=== PATIENT | female | born 1985 | race Caucasian/White ===

== ENCOUNTER 2021-07-12 01:00 | Inpatient (IN) | payer OTHER, SELFPAY ==
[2021-07-12] VITALS (17 sets, daily range): BP systolic 101–123; BP diastolic 53–66; PULSE 68–95; RESP 16–20; TEMP 36–36.7; O2SAT 95–100; BMI 36.4
--- NOTE | ~2021-07-12 | CT_ITS ---
EXAMINATION: CT ABDOMEN AND PELVIS WITH CONTRAST CLINICAL INFORMATION: Right lower quadrant pain. COMPARISON: None TECHNIQUE: Multidetector volumetric images were obtained from the superior aspect of the liver through the pubic symphysis following administration 85 mL of Omnipaque 350 intravenous contrast. Sagittal and coronal reformatted images were obtained on the technologist's workstation. Oral contrast: No This CT examination was performed using dose optimization techniques as appropriate, variously including the following: *Automated exposure control *Adjustment of mA and/or kV according to patient size (this includes techniques or standardized protocols for targeted exams where dose is matched to indication/reason for exam; i.e. extremities or head) *Use of iterative reconstruction technique DLP: 795 mGy-cm FINDINGS: LUNG BASES: The visualized lung bases are unremarkable. LIVER, GALLBLADDER, AND BILIARY TREE: The liver is normal in size, shape, and attenuation. No focal hepatic lesion or biliary ductal dilatation is present. The gallbladder is unremarkable with no evidence of radiopaque gallstones, gallbladder wall thickening, or obvious pericholecystic inflammatory changes. PANCREAS: Unremarkable. SPLEEN: Unremarkable. ADRENAL GLANDS: Unremarkable. KIDNEYS AND URETERS: The kidneys are normal in size, shape, and attenuation. No hydronephrosis, hydroureter, or calculi seen. No perinephric stranding. BLADDER: Unremarkable. GASTROINTESTINAL TRACT: Focal inflammatory changes with adjacent punctate foci of gas suspicious for adjacent free intraperitoneal gas are noted in the region of the distal ileum anteriorly within the midline pelvis (series 3 image 64). A small quantity of possible free intraperitoneal fluid is present in the same region over a maximum transaxial dimension of approximately 2 cm. No discrete, clearly drainable fluid collections are noted. A vaguely tubular hyperemic focus measuring approximately 1 cm in diameter and 2.5 cm in length (series 8 image 59) is noted in this region appears to extend to an adjacent ileal segment. The appendix is normal in appearance (series 7 image [id number], series 3 image [id number]). Moderate-marked diverticulosis of the sigmoid colon is present without mural inflammatory changes of the sigmoid colon and adjacent sigmoid mesentery. Moderate diverticulosis of the distal descending colon is identified. ABDOMINAL WALL: No significant hernia is appreciated. LYMPH NODES: Normal. VASCULAR: Unremarkable. PELVIC VISCERA: An anteroverted uterus is noted. No adnexal lesions are identified. OSSEOUS STRUCTURES: Unremarkable. CT/CT abdomen pelvis w con IMPRESSION: -Focal inflammatory changes and findings suspicious for a contained perforation in the region of the distal ileum as detailed above. Findings may represent perforated Meckel's diverticulitis. The appendix is normal in appearance. Prominent diverticulosis of the distal descending colon and sigmoid colon is present without associated findings suspicious for acute diverticulitis.
[2021-07-12 02:39] LABS: MANUAL DIFF FLAG NO
[2021-07-12 02:40] LABS: Basophils Percent Auto 0.3 % (0-2); Eosinophils Absolute Auto 0.1 X10*3/uL (0.0-0.4); Eosinophils Percent Auto 0.7 % (0-4); Hematocrit 40.9 % (37.0-47.0); Hemoglobin 13.3 g/dl (12.0-16.0); Imm Gran Abs Auto 0.05 X10*3/uL (0.00-0.03); Imm Gran Pct Auto 0.3 % (0.0-0.4); Lymphocytes Absolute Auto 1.2 X10*3/uL (1.2-4.9); Lymphocytes Percent Auto 7.9 % (20-40); Mean Corpuscular HGB Conc 32.5 g/dl (31.0-35.0); Mean Corpuscular Hemoglobin 30.3 pg (27.0-33.0); Mean Corpuscular Volume 93.2 fL (80.0-98.0); Mean Platelet Volume 9.3 fL (9.4-12.3); Monocytes Percent Auto 6.5 % (2-11); Neutrophils Absolute Auto 12.6 x10*3/uL (2.0-8.3); Neutrophils Percent Auto 84.3 % (45-73); Platelet Count 264 X10*3/uL (160-400); Red Blood Count 4.39 X10*6/uL (4.20-5.50); Red Cell Distribution Width 13.1 % (11.0-16.0)
[2021-07-12 02:41] LABS: Appearance Urine HAZY; Color Urine YELLOW; Glucose Urine UA NEG (NEG); Leukocyte Esterase Urine NEG (NEG); Nitrite Urine NEG (NEG); PH 5.5 (5.0-8.0); Specific Gravity - Urine >= 1.030 (1.005-1.025); Urine Blood NEG (NEG); Urine Ketones NEG (NEG); Urine Protein TRACE MG/DL (NEG-TRACE)
[2021-07-12 02:42] LABS: UACC Culture Trigger NO
[2021-07-12 02:43] LABS: UPreg QC Valid YES; Urine Pregnancy NEGATIVE (NEGATIVE)
[2021-07-12 02:54] LABS: Alanine Aminotransferase 16 U/L (0-31); Albumin Level 4.5 g/dL (3.5-5.0); Alkaline Phosphatase 80 U/L (39-117); Anion Gap 16 (12-20); Aspartate Amino Transferase 14 U/L (5-31); Bilirubin Total 0.5 mg/dL (0.0-1.0); Blood Urea Nitrogen 15 mg/dL (9-16); Calcium 9.4 mg/dL (8.4-10.2); Carbon Dioxide 22 mmol/L (22-29); Chloride 107 mmol/L (96-108); Creatinine Clr Calc Pharmacy 85.2; Estimated Glomerular Filt Rate > 60; Glucose Random 158 mg/dL (60-115); Potassium 4.2 mmol/L (3.3-5.1); Sodium 141 mmol/L (135-145); Total Protein 7.3 g/dL (6.5-8.0)
[2021-07-12 02:55] LABS: COVID-19 Test Negative (Negative); IDNOW Serial# 9DD0AD1C
[2021-07-12] MEDS: fentaNYL citrate/PF 100 MCG/2 ML VIAL 25 MCG IVPUSH (04:55)
[2021-07-12 04:58] LABS: Lipase 17 U/L (8-78)
[2021-07-12] MEDS: iohexoL 350 MG/ML 100 ML INFUS..BTL 85 ML IV (05:05)
[2021-07-12] MEDS: Piperacillin Sodium/Tazobactam 3.375 GM in 0.9 % Sodium Chloride 50 ML IV ×4 (05:09→22:06)
[2021-07-12] MEDS: 0.9 % Sodium Chloride 1,000 ML 999 ML IV (05:10)
[2021-07-12 05:21] LABS: Lactic Acid 1.7 mmol/L (0.5-2.0)
--- NOTE | 2021-07-12 05:24 | ED.ABDPAIN ---
HPI - Abdominal Pain General Chief Complaint: Abdominal Pain Stated Complaint: right side abd pain Time Seen by Provider: 07/12/21 04:32 Source: patient Mode of arrival: ambulatory History of Present Illness HPI narrative: 36-year-old female with reported history of diverticulitis presents to the emergency room with abdominal pain that was sharp in nature and started off in the periumbilical area and then throughout the day yesterday progressively moved into the right lower quadrant with chills and rigors but denies any nausea, vomiting and reports that she has had some loose stools over the past few days. Related Data Allergies Allergy/AdvReac Type Severity Reaction Status Date / Time No Known Allergies Allergy Unverified 07/12/21 04:32 Review of Systems Review of Systems Pertinent positives and negatives as stated in HPI 10 point review of systems is otherwise negative. Physical Exam Vital Signs: Vital Signs: Last Vital Signs Temp 96.8 F 07/12/21 02:03 Pulse 92 07/12/21 02:03 Resp 16 07/12/21 02:03 BP 113/63 07/12/21 02:03 Pulse Ox 98 07/12/21 02:03 Body Mass Index 36.4 VITAL SIGNS: Reviewed. GENERAL: Well developed, well nourished, in no acute distress. HEAD: Normocephalic/atraumatic EYES: PERRLA, EOMI OROPHARYNX: no oral lesions noted, posterior pharynx clear NECK: Supple, no adenopathy LUNGS: Normal breath sounds. No adventitious sounds or accessory muscle use. SpO2<98> CARDIOVASCULAR: Regular rate and rhythm without noted murmurs ABDOMEN: Soft, Significant tenderness in the right lower quadrant, non-distended with hypoactive bowel sounds. SKIN: Inspection of the skin reveals no rashes NEUROLOGIC: Alert and oriented x 4. Strength and sensation to light touch were grossly intact x 4. Course Course Course Narrative: 36-year-old female with history and clinical presentation suggestive of possible acute appendicitis, diverticulitis, UTI. 0500: suspect infection Review of all investigations consistent with contained perforation of suspected Meckel's diverticulum as reported by the radiologist. Patient has received IV antibiotics, pain medication as well as IV fluids. I discussed this case with Surgical Services who accepts admission and will see the patient. MDM - Abdominal Pain Lab Data Result diagrams: 07/12/21 02:34 07/12/21 02:34 Labs: Lab Results 07/12/21 07/12/21 07/12/21 Range/Units 02:34 02:34 02:34 WBC 15.0 H (4.8-10.8) X10*3/uL RBC 4.39 (4.20-5.50) X10*6/uL Hgb 13.3 (12.0-16.0) g/dl Hct 40.9 (37.0-47.0) % MCV 93.2 (80.0-98.0) fL MCH 30.3 (27.0-33.0) pg MCHC 32.5 (31.0-35.0) g/dl RDW 13.1 (11.0-16.0) % Plt Count 264 (160-400) X10*3/uL MPV 9.3 L (9.4-12.3) fL Immature Gran % (Auto) 0.3 (0.0-0.4) % Neut % (Auto) 84.3 H (45-73) % Lymph % (Auto) 7.9 L (20-40) % [place] % (Auto) 6.5 (2-11) % Eos % (Auto) 0.7 (0-4) % Baso % (Auto) 0.3 (0-2) % Lymph # (Auto) 1.2 (1.2-4.9) X10*3/uL [place] # (Auto) 1.0 (0.1-1.2) X10*3/uL Eos # (Auto) 0.1 (0.0-0.4) X10*3/uL Baso # (Auto) 0.0 (0.0-0.2) X10*3/uL Abs Immat Gran (auto) 0.05 H (0.00-0.03) X10*3/uL Absolute Neuts (auto) 12.6 H (2.0-8.3) x10*3/uL Absolute Nucleated RBC 0.000 (0.0-0.012) X10*3/uL Nucleated RBC % (auto) 0.0 (0.0-0.2) /100WBC Sodium 141 (135-145) mmol/L Potassium 4.2 (3.3-5.1) mmol/L Chloride 107 (96-108) mmol/L Carbon Dioxide 22 (22-29) mmol/L Anion Gap 16 (12-20) BUN 15 (9-16) mg/dL Creatinine 0.90 (0.5-1.4) mg/dL Estim Creat Clear Calc 85.2 Estimated GFR > 60 Random Glucose 158 H (60-115) mg/dL Lactic Acid (0.5-2.0) mmol/L Calcium 9.4 (8.4-10.2) mg/dL Total Bilirubin 0.5 (0.0-1.0) mg/dL AST 14 (5-31) U/L ALT 16 (0-31) U/L Alkaline Phosphatase 80 (39-117) U/L Total Protein 7.3 (6.5-8.0) g/dL Albumin 4.5 (3.5-5.0) g/dL Lipase 17 (8-78) U/L Urine Color Urine Appearance Urine pH (5.0-8.0) Ur Specific [place] (1.005-1.025) Urine Protein (NEG-TRACE) MG/DL Urine Glucose (UA) (NEG) MG/DL Urine Ketones (NEG) MG/DL Urine Blood (NEG) Urine Nitrite (NEG) Ur Leukocyte Esterase (NEG) Urine Test (NEGATIVE) COVID-19 (BRENDAN) Negative (Negative) COVID-19 Clin Com See Note 07/12/21 07/12/21 07/12/21 Range/Units 02:34 02:34 05:02 WBC (4.8-10.8) X10*3/uL RBC (4.20-5.50) X10*6/uL Hgb (12.0-16.0) g/dl Hct (37.0-47.0) % MCV (80.0-98.0) fL MCH (27.0-33.0) pg MCHC (31.0-35.0) g/dl RDW (11.0-16.0) % Plt Count (160-400) X10*3/uL MPV (9.4-12.3) fL Immature Gran % (Auto) (0.0-0.4) % Neut % (Auto) (45-73) % Lymph % (Auto) (20-40) % [place] % (Auto) (2-11) % Eos % (Auto) (0-4) % Baso % (Auto) (0-2) % Lymph # (Auto) (1.2-4.9) X10*3/uL [place] # (Auto) (0.1-1.2) X10*3/uL Eos # (Auto) (0.0-0.4) X10*3/uL Baso # (Auto) (0.0-0.2) X10*3/uL Abs Immat Gran (auto) (0.00-0.03) X10*3/uL Absolute Neuts (auto) (2.0-8.3) x10*3/uL Absolute Nucleated RBC (0.0-0.012) X10*3/uL Nucleated RBC % (auto) (0.0-0.2) /100WBC Sodium (135-145) mmol/L Potassium (3.3-5.1) mmol/L Chloride (96-108) mmol/L Carbon Dioxide (22-29) mmol/L Anion Gap (12-20) BUN (9-16) mg/dL Creatinine (0.5-1.4) mg/dL Estim Creat Clear Calc Estimated GFR Random Glucose (60-115) mg/dL Lactic Acid 1.7 (0.5-2.0) mmol/L Calcium (8.4-10.2) mg/dL Total Bilirubin (0.0-1.0) mg/dL AST (5-31) U/L ALT (0-31) U/L Alkaline Phosphatase (39-117) U/L Total Protein (6.5-8.0) g/dL Albumin (3.5-5.0) g/dL Lipase (8-78) U/L Urine Color YELLOW Urine Appearance HAZY Urine pH 5.5 (5.0-8.0) Ur Specific [place] >= 1.030 H (1.005-1.025) Urine Protein TRACE (NEG-TRACE) MG/DL Urine Glucose (UA) NEG (NEG) MG/DL Urine Ketones NEG (NEG) MG/DL Urine Blood NEG (NEG) Urine Nitrite NEG (NEG) Ur Leukocyte Esterase NEG (NEG) Urine Test NEGATIVE (NEGATIVE) COVID-19 (BRENDAN) (Negative) COVID-19 Clin Com Discharge Plan Discharge Clinical Impression: Perforated Meckel's diverticulum Patient Disposition: Admitted As Inpatient [facility]LY [facility] Past Medical History Source: nursing notes reviewed Medical History Diverticulitis Gestational diabetes Social History Social History Advance Directives: No Advance Directives Information Provided: Yes Patient : No
--- NOTE | 2021-07-12 07:33 | PM.HPGS ---
History of Present Illness History of Present Illness Date of Service: 07/12/21 <Shmuel Gaston MD - Last Filed: 07/12/21 14:11> 07/12/21 <Renata Blank MD - Last Filed: 07/12/21 09:33> Chief complaint: Perforated meckel's diverticulitis <Shmuel Gaston MD - Last Filed: 07/12/21 14:11> Narrative: Marin Sims is a 36 year old female who is otherwise healthy, who came to the emergency room last night because of on the lower abdomen. She says she has had some low intensity pain for about a week now. However about o'clock yesterday morning, the seemed to have worsened. She said this was mostly in the epigastric area but migrated to the right lower quadrant and lower abdomen last night. This became severe she came to the emergency room at about 01:00 o'clock in the morning. She denies any nausea or vomiting. She denies any diarrhea. She says she is healthy and does not have any significant medical problems. She is S/P Csection from last March 2021 and is nursing a 3-month old baby at home. <Shmuel Gaston MD - Last Filed: 07/12/21 14:11> Review of Systems Constitutional: Constitutional: Denies chills and Denies fever(s) <Shmuel Gaston MD - Last Filed: 07/12/21 14:11> Cardiovascular: Cardiovascular: Denies chest pain, Denies dyspnea and Denies dyspnea on exertion <Shmuel Gaston MD - Last Filed: 07/12/21 14:11> Respiratory: Respiratory: Denies cough, Denies dyspnea and Denies dyspnea on exertion <Shmuel Gaston MD - Last Filed: 07/12/21 14:11> Gastrointestinal: Gastrointestinal: Denies hematochezia and Denies change in bowel habits <Shmuel Gaston MD - Last Filed: 07/12/21 14:11> Genitourinary: Genitourinary: Denies hematuria <Shmuel Gaston MD - Last Filed: 07/12/21 14:11> Musculoskeletal: Musculoskeletal: Denies back pain and Denies limited range of motion <Shmuel Gaston MD - Last Filed: 07/12/21 14:11> Neurologic: Denies focal weakness and Denies convulsions <Shmuel Gaston MD - Last Filed: 07/12/21 14:11> Psychiatric: Psychiatric: Denies depression and Denies mood swings <Shmuel Gaston MD - Last Filed: 07/12/21 14:11> PMFSH Past Medical History Medical History: Medical History Diverticulitis Gestational diabetes <Shmuel Gaston MD - Last Filed: 07/12/21 14:11> Surgical History Surgical History: Surgical History History of surgical removal of ganglion cyst Hx of section Hx of colonoscopy with polypectomy <Shmuel Gaston MD - Last Filed: 07/12/21 14:11> Social History Social History: Social History Advance Directives: No Advance Directives Information Provided: Yes Patient : No <Shmuel Gaston MD - Last Filed: 07/12/21 14:11> Meds Allergies/Adverse reactions: Allergies Allergy/AdvReac Type Severity Reaction Status Date / Time acetaminophen [From Vicodin] Allergy Intermediate Itching Verified 07/12/21 09:47 hydrocodone [From Vicodin] Allergy Intermediate Itching Verified 07/12/21 09:47 <Shmuel Gaston MD - Last Filed: 07/12/21 14:11> Active Medications: Current Medications Sodium Chloride (Ns) 1,000 mls @ 100 mls/hr IVCONT .Q10H TOMASZ Piperacillin Sod/Tazobactam (Sod 3.375 gm/ Sodium Chloride) 50 mls @ 100 mls/hr IV Q6H TOMASZ Morphine Sulfate (Morphine Sulfate 4 Mg/Ml Cartridge) 3 mg IVPUSH Q3H PRN; Protocol PRN Reason: Pain, Severe (Pain Scale 7-10) Sodium Chloride (0.9 % Sodium Chloride Flush 3 Ml Syringe) 3 ml IVFLUSH QSHIFT TOMASZ <Shmuel Gaston MD - Last Filed: 07/12/21 14:11> Physical Exam Vital Signs: Vital Signs: Last Vital Signs Temp 96.8 F 07/12/21 02:03 Pulse 92 07/12/21 02:03 Resp 16 07/12/21 02:03 BP 113/63 07/12/21 02:03 Pulse Ox 98 07/12/21 02:03 Body Mass Index 36.4 <Shmuel Gaston MD - Last Filed: 07/12/21 14:11> Const: General: comfortable and no acute distress <Shmuel Gaston MD - Last Filed: 07/12/21 14:11> Orientation/consciousness: patient oriented x3 <Shmuel Gaston MD - Last Filed: 07/12/21 14:11> Neck: Neck: Yes no lymphadenopathy <Shmuel Gaston MD - Last Filed: 07/12/21 14:11> Resp: Auscultation: clear to auscultation bilaterally <Shmuel Gaston MD - Last Filed: 07/12/21 14:11> Cardio: Rhythm: regular rhythm <Shmuel Gaston MD - Last Filed: 07/12/21 14:11> GI: Other: Significantly tender on the lower abdomen right more than the left, <Shmuel Gaston MD - Last Filed: 07/12/21 14:11> Palpation (GI): Soft to palpation, nontender and Guarding due to palpation present (GI) <Shmuel Gaston MD - Last Filed: 07/12/21 14:11> Neuro: General: patient oriented x3 <Shmuel Gaston MD - Last Filed: 07/12/21 14:11> Results Results Labs: Short CBC 07/12/21 Range/Units 02:34 WBC 15.0 H (4.8-10.8) X10*3/uL Hgb 13.3 (12.0-16.0) g/dl Hct 40.9 (37.0-47.0) % Plt Count 264 (160-400) X10*3/uL BMP 07/12/21 02:34 Sodium 141 Potassium 4.2 Chloride 107 Carbon Dioxide 22 BUN 15 Creatinine 0.90 Calcium 9.4 Liver Function 07/12/21 Range/Units 02:34 Total Bilirubin 0.5 (0.0-1.0) mg/dL AST 14 (5-31) U/L ALT 16 (0-31) U/L Alkaline Phosphatase 80 (39-117) U/L Albumin 4.5 (3.5-5.0) g/dL Urine 07/12/21 07/12/21 Range/Units 02:34 02:34 Urine Color YELLOW Urine Appearance HAZY Urine pH 5.5 (5.0-8.0) Ur Specific [place] >= 1.030 H (1.005-1.025) Urine Protein TRACE (NEG-TRACE) MG/DL Urine Glucose (UA) NEG (NEG) MG/DL Urine Test NEGATIVE (NEGATIVE) <Shmuel Gaston MD - Last Filed: 07/12/21 14:11> Abdomen CT scan report/results: report reviewed and image reviewed <Shmuel Gaston MD - Last Filed: 07/12/21 14:11> CT scan - pelvis: report reviewed and image reviewed <Shmuel Gaston MD - Last Filed: 07/12/21 14:11> Assessment and Plan (1) Perforated Meckel's diverticulum: Status: Acute <Shmuel Gaston MD - Last Filed: 07/12/21 14:11> Review of her CT scan shows what appears to be perforated Meckel'sdiverticulum, amounts of free air surrounding this. She has very tender to touch. I therefore told her that it would be best to proceed with laparotomy and resection of this segment of the small bowel. I reviewed with her the technique of this procedure. I explained the risks including but not limited to bleeding, infections, staple line leak, bowel injury, abscess formation, inherent risks of anesthesia, postop pain, wound complications, as well as the benefits and alternatives. She understands and agrees to proceed. <Shmuel Gaston MD - Last Filed: 07/12/21 14:11> Quality Stroke Does the patient have a stroke diagnosis?: No <Shmuel Gaston MD - Last Filed: 07/12/21 14:11> VTE Prior VTE?: No <Shmuel Gaston MD - Last Filed: 07/12/21 14:11> VTE Risk Level:: Surgical - low <Shmuel Gaston MD - Last Filed: 07/12/21 14:11> VTE Device Contraindication: N/A - Device Ordered <Shmuel Gaston MD - Last Filed: 07/12/21 14:11> VTE Drug Contraindication: N/A - Med Ordered <Shmuel Gaston MD - Last Filed: 07/12/21 14:11> Procedures Date of Service Date of Service: 07/12/21 <Shmuel Gaston MD - Last Filed: 07/12/21 14:11>
[2021-07-12] MEDS: fentaNYL citrate/PF 100 MCG/2 ML VIAL 50 MCG IVPUSH (09:15)
--- NOTE | 2021-07-12 09:19 | PC.NURSE ---
medicated for abd pain. this rn arrival at 7am. no vomiting since then. Short stay staff here for transport. pt needs to be undressed fully. skin pwd. last PO intake was 1900 on 07/11
--- NOTE | 2021-07-12 09:57 | PC.NURSE ---
0930 to [facility] stay
--- NOTE | 2021-07-12 11:38 | MHC.CM.PN ---
CM ATTEMPTED TO MEET W/PT HOWEVER PT HAS LEFT ED FOR SURGERY (LAP COLON RESECTION). CM TO REVISIT.
--- NOTE | 2021-07-12 12:05 | PM.OP ---
Brief Operative Note Date of Service: 07/12/21 <Gayatri Hogue PA-C - Last Filed: 07/12/21 12:06> Pre-op diagnosis: perforated meckel's diverticulum <Gayatri Hogue PA-C - Last Filed: 07/12/21 12:06> Post-op diagnosis: same <Gayatri Hogue PA-C - Last Filed: 07/12/21 12:06> Procedure: exploratory laparotomy, small bowel resection <Gayatri Hogue PA-C - Last Filed: 07/12/21 12:06> Surgeon: PAM DENIS MD <Gayatri Hogue PA-C - Last Filed: 07/12/21 12:06> Anesthesia: GETA <Gayatri Hogue PA-C - Last Filed: 07/12/21 12:06> Was an Director Specialty used for this Procedure?: Yes <Gayatri Hogue PA-C - Last Filed: 07/12/21 12:06> No <Pam Denis MD - Last Filed: 07/12/21 14:10> Director Specialty: Gayatri Hogue <Gayatri Hogue PA-C - Last Filed: 07/12/21 12:06> Estimated blood loss (mL): 20 <Gayatri Hogue PA-C - Last Filed: 07/12/21 12:06> Pathology: other (MECKEL'S DIVERTICULUM) <Gayatri Hogue PA-C - Last Filed: 07/12/21 12:06> Condition: stable <Gayatri Hogue PA-C - Last Filed: 07/12/21 12:06> Disposition: PACU <Gayatri Hogue PA-C - Last Filed: 07/12/21 12:06>
--- NOTE | 2021-07-12 12:09 | HO.ANESPROP2 ---
[facility] Active Problems Active Problems: All Active Problems (Updated 07/12/21 @ 06:23 by Renata Harris MD) Perforated Meckel's diverticulum (Acute) Past Medical History Medical History Diverticulitis Gestational diabetes Surgical History Surgical History History of surgical removal of ganglion cyst Hx of section Hx of colonoscopy with polypectomy History of Problems with Anesthesia: No Social History Social History Advance Directives: No Advance Directives Information Provided: Yes Patient : No Meds Allergies Allergy/AdvReac Type Severity Reaction Status Date / Time acetaminophen [From Vicodin] Allergy Intermediate Itching Verified 07/12/21 09:47 hydrocodone [From Vicodin] Allergy Intermediate Itching Verified 07/12/21 09:47 Active Medications: Current Medications Sodium Chloride (Ns) 1,000 mls @ 100 mls/hr IVCONT .Q10H TOMASZ Piperacillin Sod/Tazobactam (Sod 3.375 gm/ Sodium Chloride) 50 mls @ 100 mls/hr IV Q6H OTMASZ Morphine Sulfate (Morphine Sulfate 4 Mg/Ml Cartridge) 3 mg IVPUSH Q3H PRN; Protocol PRN Reason: Pain, Severe (Pain Scale 7-10) Sodium Chloride (0.9 % Sodium Chloride Flush 3 Ml Syringe) 3 ml IVFLUSH QSHIFT TOMASZ Exam Exam Date and Time: July 12, 2021 1209 Height,Weight and Vital Signs: Height 5 ft 1 in Weight 87.543 kg Last Vital Signs Temp 97.9 F 07/12/21 09:49 Pulse 95 07/12/21 09:49 Resp 20 07/12/21 09:49 BP 114/57 L 07/12/21 09:49 Pulse Ox 99 07/12/21 09:49 Pertinent Lab Results Pertinent Lab Results: Laboratory Tests 07/12/21 07/12/21 07/12/21 02:34 02:34 02:34 WBC 15.0 H RBC 4.39 Hgb 13.3 Hct 40.9 MCV 93.2 MCH 30.3 MCHC 32.5 RDW 13.1 Plt Count 264 MPV 9.3 L Immature Gran % (Auto) 0.3 Neut % (Auto) 84.3 H Lymph % (Auto) 7.9 L [place] % (Auto) 6.5 Eos % (Auto) 0.7 Baso % (Auto) 0.3 Lymph # (Auto) 1.2 [place] # (Auto) 1.0 Eos # (Auto) 0.1 Baso # (Auto) 0.0 Abs Immat Gran (auto) 0.05 H Absolute Neuts (auto) 12.6 H Absolute Nucleated RBC 0.000 Nucleated RBC % (auto) 0.0 Sodium 141 Potassium 4.2 Chloride 107 Carbon Dioxide 22 Anion Gap 16 BUN 15 Creatinine 0.90 Estim Creat Clear Calc 85.2 Estimated GFR > 60 Random Glucose 158 H Lactic Acid Calcium 9.4 Total Bilirubin 0.5 AST 14 ALT 16 Alkaline Phosphatase 80 Total Protein 7.3 Albumin 4.5 Lipase 17 Urine Color Urine Appearance Urine pH Ur Specific [place] Urine Protein Urine Glucose (UA) Urine Ketones Urine Blood Urine Nitrite Ur Leukocyte Esterase Urine Test COVID-19 (BRENDAN) Negative COVID-[employer] See Note 07/12/21 07/12/21 07/12/21 02:34 02:34 05:02 WBC RBC Hgb Hct MCV MCH MCHC RDW Plt Count MPV Immature Gran % (Auto) Neut % (Auto) Lymph % (Auto) [place] % (Auto) Eos % (Auto) Baso % (Auto) Lymph # (Auto) [place] # (Auto) Eos # (Auto) Baso # (Auto) Abs Immat Gran (auto) Absolute Neuts (auto) Absolute Nucleated RBC Nucleated RBC % (auto) Sodium Potassium Chloride Carbon Dioxide Anion Gap BUN Creatinine Estim Creat Clear Calc Estimated GFR Random Glucose Lactic Acid 1.7 Calcium Total Bilirubin AST ALT Alkaline Phosphatase Total Protein Albumin Lipase Urine Color YELLOW Urine Appearance HAZY Urine pH 5.5 Ur Specific [place] >= 1.030 H Urine Protein TRACE Urine Glucose (UA) NEG Urine Ketones NEG Urine Blood NEG Urine Nitrite NEG Ur Leukocyte Esterase NEG Urine Test NEGATIVE COVID-19 (BRENDAN) COVID-19 Jaxtr Airway Mallampati Class: I TM Dist: >3cm Neck ROM: Full Loose/Missing/Broken Teeth: No Heart: RRR Lungs: CTA Assessment and Plan Assessment Anesthesia Assessment: Anesthesia Plan Discussed and Chart Reviewed Final Anesthetic Review History of Problems with Anesthesia: No NPO: Yes ASA Class: I and Emergency Final Preanesthetic Review: Meds/Allgs Chart Reviewed, Consent Obtained/Reviewed and Anes Risks/Benef Reviewed Patient Risk: Low Procedure Risk: Intermediate Anesthetic Plan Anesthetic Plan: GA Disposition: Standard PACU
--- NOTE | 2021-07-12 12:09 | W.PM.OPN ---
Operative Note Operative Note Date of Service: 07/12/21 Narrative: Preop diagnosis: Perforated Meckel's diverticulitis Postop diagnosis: The same Procedure: Laparotomy, small-bowel resection, including segment with Meckel's diverticulitis Surgeon: Shmuel Gaston MD speech and language assistant: JENNY Hogue The patient is a 36 year female admitted early this morning because of abdominal pain. She had a CAT scan showing perforated Meckel's diverticulitis. I had reviewed her imaging studies with the radiologist. I for explained to the patient that it would be best to proceed with laparotomy and likely resection of the involved small bowel for the perforated diverticulitis. She understood the technique of the procedure as well as the risks, benefits, and alternatives and had agreed to proceed . She was brought to the operating room and placed supine on the table under general anesthesia via endotracheal tube. A Mauricio catheter was inserted. The abdomen is prepped and draped in the usual sterile fashion. A surgical time-out was done. The patient received cefazolin 2 g IV preoperatively I made a short midline laparotomy in the incision using blade 10 starting from just the area below the umbilicus caudally. This was carried down using electrocautery through the full-thickness of the skin and subcutaneous fat. Please note that the patient had a thick amount of subcutaneous fat. We eventually reach the fascia. I continued to clear the fascia made the incision using the electrocautery until was able to identify peritoneal lining. I then entered the peritoneum and extended the fascial incision superiorly and inferiorly to optimize the length of the skin incision. There was note of some small amount of murky peritoneal fluid. There was note of omentum tethered to small bowel loops near the midline and a little to the right. Some of these omentum was also adherent to the abdominal wall so had to carefully release this using careful blunt dissection with the finger. Eventually, I was able to expose the peritoneum well. I was able to reflect the omentum superiorly but this was tethered to some small bowel loops with a lot of indurated tissue. I was eventually able to expose small bowel loops on the midline and again there was this segment with a lot of induration and fibrinous exudates. I was immediately able to see Meckel's diverticulum which was about 7 cm long, markedly indurated with what appeared to be necrosis and perforation at the tip. The entire critical limb appeared to be very indurated and inflamed. Again there was a lot of fibrinous exudates surrounding this. the adjacent omentum and small bowel loops had reactive erythema as well. I was able to isolate this segment of small bowel with the Meckel's diverticulum. I chose my point of transection about 5 cm from this both proximal and distal. I transected both ends with VARINDER 60 mm staplers. I then completed the resection by dividing the attached mesentery using the LigaSure. This was sent as a specimen . I then proceeded to align the small bowel loops together. I opened up the apex of each staple line. I entered the lumen of each limb and positioned each arm of the VARINDER 60 mm stapler at the anti mesenteric border. I made sure that there was no bowel loop or mesentery trapped between the staplers and this was then fired. I examined the lumen of the anastomosis and the staple line appeared intact without any bleeding. I then closed the enterotomy with a TA 60 mm stapler to complete the anastomosis. I reinforced the crotch of the staple line with seromuscular Dexon 3-0 stitch to distension from the staple line itself. I closed the mesenteric defect with the running Dexon 3-0 stitch to prevent any internal hernia. I examined the entire staple line and this appeared to be intact. There is no obvious bleeding . I replaced the bowel loops back into the peritoneal cavity. I positioned the omentum to overlie this anastomosis. I irrigated the area. I then closed the fascia with running Maxon 1 stitch. I re-irrigated the thick subcutaneous layer. I closed the skin with skin chela. I infiltrated the area around the incision with Marcaine 0.5% for postop analgesia . Dressings were applied and the procedure was completed . The patient tolerated procedure well. There were no complication noted. Initial and final counts of sponges and instruments were correct. Estimated blood loss was about 20 cc . The patient was extubated without difficulty and transferred to the recovery room with stable vital signs.
[2021-07-12] MEDS: HYDROmorphone HCl 0.5 MG/0.5 ML SYRINGE IVPUSH ×2 (12:27→13:15)
[2021-07-12] MEDS: ondansetron HCL 4 MG/2 ML VIAL IVPUSH (12:35)
--- NOTE | 2021-07-12 14:11 | PM.EVENT ---
Event Note Date of Service: 07/12/21 Event Note: seen postop underwent small bowel resection for perforated Meckel' diverticulitis earlier says she has good pain control appears comfortable good UO pain mgt on clear liquids Jarocho updated by phone
[2021-07-12] MEDS: 0.9 % Sodium Chloride 1,000 ML 100 ML IVCONT (14:25)
[2021-07-13] MEDS: 0.9 % Sodium Chloride 1,000 ML 100 ML IVCONT ×2 (01:46→12:29)
[2021-07-13 04:00] VITALS: BP 126/58; PULSE 69; RESP 16; TEMP 37.2; O2SAT 96
[2021-07-13] MEDS: Piperacillin Sodium/Tazobactam 3.375 GM in 0.9 % Sodium Chloride 50 ML IV ×4 (04:51→22:50)
[2021-07-13] MEDS: oxyCODONE HCl Immed Release 5 MG TABLET PO ×2 (04:55→16:33)
[2021-07-13 05:30] LABS: MANUAL DIFF FLAG NO
[2021-07-13 05:56] LABS: Anion Gap 12 (12-20); Blood Urea Nitrogen 7 mg/dL (9-16); Calcium 8.6 mg/dL (8.4-10.2); Carbon Dioxide 23 mmol/L (22-29); Chloride 110 mmol/L (96-108); Creatinine Clr Calc Pharmacy 105.1; Estimated Glomerular Filt Rate > 60; Glucose Fasting 105 mg/dL (60-99); Sodium 141 mmol/L (135-145)
[2021-07-13 06:04] LABS: Basophils Percent Auto 0.3 % (0-2); Eosinophils Percent Auto 0.2 % (0-4); Hematocrit 35.9 % (37.0-47.0); Hemoglobin 11.5 g/dl (12.0-16.0); Imm Gran Abs Auto 0.05 X10*3/uL (0.00-0.03); Imm Gran Pct Auto 0.4 % (0.0-0.4); Lymphocytes Absolute Auto 1.5 X10*3/uL (1.2-4.9); Lymphocytes Percent Auto 11.4 % (20-40); Mean Corpuscular Hemoglobin 30.1 pg (27.0-33.0); Mean Platelet Volume 9.8 fL (9.4-12.3); Monocytes Absolute Auto 0.9 X10*3/uL (0.1-1.2); Monocytes Percent Auto 7.3 % (2-11); Neutrophils Absolute Auto 10.2 x10*3/uL (2.0-8.3); Neutrophils Percent Auto 80.4 % (45-73); Platelet Count 283 X10*3/uL (160-400); Red Blood Count 3.82 X10*6/uL (4.20-5.50); Red Cell Distribution Width 13.5 % (11.0-16.0); White Blood Count 12.7 X10*3/uL (4.8-10.8)
--- NOTE | 2021-07-13 07:00 | HO.POSTANES ---
Post Anesthesia Evaluation Post Anesthesia Evaluation Vital Signs: Vital Signs Temp Pulse Resp BP Pulse Ox 07/13/21 04:00 98.9 F 69 16 126/58 L 96 07/12/21 23:57 97.6 F 75 17 115/55 L 95 07/12/21 19:54 97.7 F 75 17 118/57 L 98 Anesthesia: General Endotracheal-GETA Mental Status: Awake Pain Control: Satisfactory Nausea/Vomiting: None Hydration: Adequate Anesthesia-Related Issues: No Anes. Related Issues
[2021-07-13 07:51] VITALS: BP 109/54; PULSE 67; RESP 17; TEMP 36.4; O2SAT 96
--- NOTE | 2021-07-13 08:56 | P.CDIC_ITS ---
CDI Concurrent Query Documentation Clarification: PHYSICIAN'S DOCUMENTATION REQUEST Date of Query: 07/13/21 0857 Patient Name: Marin Sims Admit Date: 07/12/21 Dear Doctor, A review of the medical record indicates additional documentation may be needed. Please review below and update the documentation accordingly. Risk Factors/Clinical Indicators/Treatments Per Operative Report 07/12/21: there was this segment with a lot of induration and fibrinous exudates.? I was immediately able to see Meckel's diverticulum? which was about? 7 cm long, markedly indurated with appeared to be necrosis and perforation at the tip.? The entire critical limb appeared to be very indurated and inflamed.? Again there was a lot of fibrinous exudate surrounding this. ? the adjacent omentum and small bowel loops had reactive erythema as well. Based on the above, could you clarify in the Progress Notes the appropriate rylee gnosis, if significant, that supports the above abnormalities and additional evaluation, monitoring, and/or treatment rendered: * Perforated Bishop's Diverticulum with Peritonitis * Perforated Gio's Diverticulum without Peritonitis * Other (please specify) * Unable to determine Use of terms such as suspected, likely, concern for, or probable (associated with a specific diagnosis that is being evaluated, monitored, or treated as if it exists) are acceptable and can be coded in the inpatient setting, when documented at the time of discharge. Thank you, Maura Westbrook RN Extension: [phone] Please use your independent medical judgment in providing your response. THIS QUERY IS PART OF THE PERMANENT MEDICAL RECORD Provider Response: Other (perforated Meckel's diverticulitis with peritonitis) Other Diagnosis: patient has perforated Meckel's diverticulitis with peritonitis
--- NOTE | 2021-07-13 09:10 | MHC.CM.PN ---
pt lives c her in their home. she reports that at baseline she is independent in her care. she is active in the community . her can help her c her needs if necessary. of note, he is a panel beater at [employer]. he will also provide transportation at or. pt denies the need for vna at or. dc plan is home no svcs. cm to cont. to follow.
--- NOTE | 2021-07-13 10:30 | P.CDIC_ITS ---
CDI Concurrent Query Documentation Clarification: PHYSICIAN'S DOCUMENTATION REQUEST Date of Query: 07/13/21 1030 Patient Name: Marin Sims Admit Date: 07/12/21 Dear Doctor, A review of the medical record indicates additional documentation may be needed. Please review below and update the documentation accordingly. Clinical Indicators: The following diagnoses or signs and symptoms were noted in the patient record: Lab Tests: Imaging: Progress Notes: Nurse's Notes: Ancillary Notes: Other Documentation: Risk Factors/Clinical Indicators/Treatments Based on the above, could you clarify in the Progress Notes the appropriate diagnosis, if significant, that supports the above abnormalities and additional evaluation, monitoring, and/or treatment rendered: * Condition 1 (please specify) * Condition 2 (please specify) * Condition 3 (please specify) * Labs indicate a diagnosis of (please specify) * Other (please specify) * Unable to determine Use of terms such as suspected, likely, concern for, or probable (associated with a specific diagnosis that is being evaluated, monitored, or treated as if it exists) are acceptable and can be coded in the inpatient setting, when documented at the time of discharge. Thank you, Maura Westbrook [insert CDI's credentials] Extension: [4-digit phone extension] Please use your independent medical judgment in providing your response. THIS QUERY IS PART OF THE PERMANENT MEDICAL RECORD
--- NOTE | 2021-07-13 11:05 | P.PNGS_ITS ---
Subjective Subjective Date of Service: 07/13/21 <Gayatri Hogue PA-C - Last Filed: 07/13/21 11:09> 07/13/21 <Shmuel Gaston MD - Last Filed: 07/13/21 12:08> Interval history: Having some incisional pain but overall feeling better and comfortable. Tolerating clears. Has some gaseous pain and cramping. OOB to bathroom and voiding on own. Denies flatus. <Gayatri Hogue PA-C - Last Filed: 07/13/21 11:09> Physical Exam Vital Signs: Vital Signs: Last Vital Signs Temp 97.5 F 07/13/21 07:51 Pulse 67 07/13/21 07:51 Resp 17 07/13/21 07:51 BP 109/54 L 07/13/21 07:51 Pulse Ox 96 07/13/21 07:51 BMI result Body Mass Index 36.4 <Gayatri Hogue PA-C - Last Filed: 07/13/21 11:09> Const: General: comfortable and no acute distress <NILAY Huber - Last Filed: 07/13/21 11:09> Orientation/consciousness: patient oriented x3 <ROSANNA Huber Last Filed: 07/13/21 11:09> Resp: Effort & Inspection: normal respiratory effort <Gayatri Hogue PA-C - Last Filed: 07/13/21 11:09> GI: Inspection: No distended and Yes incision (dressing c/d/i) <Gayatri Hogue PA-C - Last Filed: 07/13/21 11:09> Palpation (GI): Soft to palpation, Tenderness to palpation present (GI) (mild, incisional), no guarding and not rigid <Gayatri Hogue PA-C - Last Filed: 07/13/21 11:09> Percussion: Yes normal to percussion <ROSANNA Huber Last Filed: 07/13/21 11:09> Skin: General skin exam: no rashes or lesions noted <Gayatri Hogue PA-C - Last Filed: 07/13/21 11:09> Neuro: General: patient oriented x3 <Gayatri Hogue PA-C - Last Filed: 07/13/21 11:09> Extrem: General: Yes no clubbing, cyanosis or edema <Gayatri Hogue PA-C - Last Filed: 07/13/21 11:09> Objective Data Active Medications Sodium Chloride (Ns) 1,000 mls @ 100 mls/hr IVCONT .Q10H [facility] Last Infusion: 07/13/21 05:23 Dose: 100 mls/hr Documented by: FRANKY Piperacillin Sod/Tazobactam (Sod 3.375 gm/ Sodium Chloride) 50 mls @ 100 mls/hr IV Q6H [facility] Last Admin: 07/13/21 10:29 Dose: 100 mls/hr Documented by: PRAVIN Acetaminophen (Ofirmev) 1,000 mg in 100 mls @ 400 mls/hr IV Q6H [facility] Last Infusion: 07/13/21 10:13 Dose: 0 mls/hr Documented by: PRAVIN Morphine Sulfate (Morphine Sulfate 4 Mg/Ml Cartridge) 3 mg IVPUSH Q3H PRN; Protocol PRN Reason: Pain, Severe (Pain Scale 7-10) Ondansetron HCl (Ondansetron Hcl 4 Mg/2 Ml Vial) 4 mg IVPUSH Q8H PRN PRN Reason: Nausea Oxycodone HCl (Oxycodone Hcl Immed Release 5 Mg Tablet) 10 mg PO Q4H PRN PRN Reason: Pain, Moderate (Pain Scale 4-6 Oxycodone HCl (Oxycodone Hcl Immed Release 5 Mg Tablet) 5 mg PO Q4H PRN PRN Reason: Pain, Moderate (Pain Scale 4-6 Last Admin: 07/13/21 04:55 Dose: 5 mg Documented by: FRANKY Sodium Chloride (0.9 % Sodium Chloride Flush 3 Ml Syringe) [facility] Last Admin: 07/13/21 07:23 Dose: Not Given Documented by: PRAVIN Non-Admin Reason: IV Running <Gayatri Hogue PA-C - Last Filed: 07/13/21 11:09> Labs CBC & Chem 7: : 07/13/21 05:22 07/13/21 05:22 <Gayatri Hogue PA-C - Last Filed: 07/13/21 11:09> Labs: Laboratory Results - last 24 hr 07/13/21 07/13/21 05:22 05:22 MCV 94.0 MCH 30.1 MCHC 32.0 RDW 13.5 Plt Count 283 MPV 9.8 Immature Gran % (Auto) 0.4 Neut % (Auto) 80.4 H Lymph % (Auto) 11.4 L Reynolds % (Auto) 7.3 Eos % (Auto) 0.2 Baso % (Auto) 0.3 Lymph # (Auto) 1.5 Reynolds # (Auto) 0.9 Eos # (Auto) 0.0 Baso # (Auto) 0.0 Abs Immat Gran (auto) 0.05 H Absolute Neuts (auto) 10.2 H Absolute Nucleated RBC 0.000 Nucleated RBC % (auto) 0.0 Anion Gap 12 Estim Creat Clear Calc 105.1 Estimated GFR > 60 Fasting Glucose 105 H Calcium 8.6 D <Gayatri Hogue PA-C - Last Filed: 07/13/21 11:09> Microbiology Microbiology Results: Microbiology 07/12/21 05:26 Blood Culture - Preliminary Blood - Venous No growth after 24 hours. 07/12/21 05:02 Blood Culture - Preliminary Blood - Venous No growth after 24 hours. <Gayatri Hogue PA-C - Last Filed: 07/13/21 11:09> Procedures Date of Service Date of Service: 07/13/21 <Gayatri Hogue PA-C - Last Filed: 07/13/21 11:09> Progress Note: A&P Assessment and plan (1) Perforated Meckel's diverticulum: Status: Acute <Gayatri Hogue PA-C - Last Filed: 07/13/21 11:09> Assessment and Plan: Says she has good pain control Says she only took oxycodone morning Denies flatus No nausea or vomiting Dressings dry She looks well Continue pain management Out of bed and ambulate DC Mauricio Seen and examined - agree with JENNY Hogue <Shmuel Gaston MD - Last Filed: 07/13/21 12:08> (2) S/P exploratory laparotomy: Status: Acute <Gayatri Hogue PA-C - Last Filed: 07/13/21 11:09> Assessment and Plan: 36 year old female admitted with perforated meckels diverticulum now POD #1 s/p ex lap, small bowel resection. She is doing well post op and comfortable. VSS. Abd exam benign with appropriate post op tenderness, clean dressing. Will continue clear liquid diet for now until begins to pass flatus given some cramping and bloating complaints. Encouraged OOB/ambulation, IS use. patient comfortable with plan. Cont IV abx. WBC downtrending. <Gayatri moran PA-C - Last Filed: 07/13/21 11:09> Fall Risk Details Current Medications: Current Medications Sodium Chloride (Ns) 1,000 mls @ 100 mls/hr IVCONT .Q10H [facility] Last Infusion: 07/13/21 05:23 Dose: 100 mls/hr Documented by: Piperacillin Sod/Tazobactam (Sod 3.375 gm/ Sodium Chloride) 50 mls @ 100 mls/hr IV Q6H [facility] Last Admin: 07/13/21 10:29 Dose: 100 mls/hr Documented by: Acetaminophen (Ofirmev) 1,000 mg in 100 mls @ 400 mls/hr IV Q6H [facility] Last Infusion: 07/13/21 10:13 Dose: Infused Documented by: Morphine Sulfate (Morphine Sulfate 4 Mg/Ml Cartridge) 3 mg IVPUSH Q3H PRN; Protocol PRN Reason: Pain, Severe (Pain Scale 7-10) Ondansetron HCl (Ondansetron Hcl 4 Mg/2 Ml Vial) 4 mg IVPUSH Q8H PRN PRN Reason: Nausea Oxycodone HCl (Oxycodone Hcl Immed Release 5 Mg Tablet) 10 mg PO Q4H PRN PRN Reason: Pain, Moderate (Pain Scale 4-6 Oxycodone HCl (Oxycodone Hcl Immed Release 5 Mg Tablet) 5 mg PO Q4H PRN PRN Reason: Pain, Moderate (Pain Scale 4-6 Last Admin: 07/13/21 04:55 Dose: 5 mg Documented by: Sodium Chloride (0.9 % Sodium Chloride Flush 3 Ml Syringe) 3 ml IVFLUSH QSHIFT [facility] Last Admin: 07/13/21 07:23 Dose: Not Given Documented by: <Gayatri Hogue PA-C - Last Filed: 07/13/21 11:09> Time Spent With Patient Time: Total time spent is greater than 50% in coordination of care (as documented) at patient's floor/unit and/or counseling patient: <Gayatri Hogue PA-C - Last Filed: 07/13/21 11:09> Time with patient: 15 - 24 minutes <Gayatri Hogue PA-C - Last Filed: 07/13/21 11:09> Quality Stroke Does the patient have a stroke diagnosis?: No <Gayatri Hogue PA-C - Last Filed: 07/13/21 11:09> VTE Prior VTE?: No <Gayatri Hogue PA-C - Last Filed: 07/13/21 11:09> VTE Risk Level:: Surgical - low <Gayatri Hogue PA-C - Last Filed: 07/13/21 11:09> VTE Device Contraindication: N/A - Device Ordered <Gayatri Hogue PA-C - Last Filed: 07/13/21 11:09> VTE Drug Contraindication: N/A - Med Ordered <Gayatri Hogue PA-C - Last Filed: 07/13/21 11:09>
[2021-07-13 11:22] VITALS: BP 104/53; PULSE 71; RESP 18; TEMP 36.2; O2SAT 96
[2021-07-13 15:55] VITALS: BP 128/66; PULSE 77; RESP 18; TEMP 36.4; O2SAT 96
[2021-07-13 19:18] VITALS: BP 117/58; PULSE 78; RESP 18; TEMP 37.1; O2SAT 97
[2021-07-13 23:01] VITALS: BP 115/57; PULSE 58; RESP 18; TEMP 36.7; O2SAT 97
[2021-07-14] MEDS: 0.9 % Sodium Chloride 1,000 ML 100 ML IVCONT (02:07)
[2021-07-14 04:00] VITALS: BP 121/69; PULSE 76; RESP 18; TEMP 36.7; O2SAT 97
[2021-07-14] MEDS: Piperacillin Sodium/Tazobactam 3.375 GM in 0.9 % Sodium Chloride 50 ML IV ×2 (04:48→10:57)
[2021-07-14] MEDS: ondansetron HCL 4 MG/2 ML VIAL IVPUSH (04:48)
[2021-07-14 07:50] VITALS: BP 113/55; PULSE 68; RESP 18; TEMP 36.7; O2SAT 98
--- NOTE | 2021-07-14 08:11 | PM.PNGS ---
Subjective Subjective Date of Service: 07/14/21 <Gayatri Hogue PA-C - Last Filed: 07/14/21 08:14> 07/14/21 <Shmuel Gaston MD - Last Filed: 07/14/21 08:59> Interval history: Feels well. Passing flatus and moving bowels. Tolerating clear liquids. Has been OOB and ambulating. <Gayatri Hogue PA-C - Last Filed: 07/14/21 08:14> Physical Exam Vital Signs: Vital Signs: Last Vital Signs Temp 98.1 F 07/14/21 07:50 Pulse 68 07/14/21 07:50 Resp 18 07/14/21 07:50 BP 113/55 L 07/14/21 07:50 Pulse Ox 98 07/14/21 07:50 BMI result Body Mass Index 36.4 <Gayatri Hogue PA-C - Last Filed: 07/14/21 08:14> Const: General: comfortable, no acute distress and alert <Gayatri Hogue PA-C - Last Filed: 07/14/21 08:14> Orientation/consciousness: patient oriented x3 <Gayatri Hogue PA-C - Last Filed: 07/14/21 08:14> Resp: Effort & Inspection: normal respiratory effort <Gayatri Hogue PA-C - Last Filed: 07/14/21 08:14> GI: Inspection: No distended and Yes incision (clean) <Gayatri Hogue PA-C - Last Filed: 07/14/21 08:14> Palpation (GI): Soft to palpation, Tenderness to palpation present (GI) (very mild incisional), no guarding and not rigid <Gayatri Hogue PA-C - Last Filed: 07/14/21 08:14> Percussion: Yes normal to percussion <Gayatri Hogue PA-C - Last Filed: 07/14/21 08:14> Skin: General skin exam: no rashes or lesions noted <ROSANNA Huber Last Filed: 07/14/21 08:14> Neuro: General: patient oriented x3 <ROSANNA Huber Last Filed: 07/14/21 08:14> Extrem: General: Yes no clubbing, cyanosis or edema <Gayatri Hogue PA-C - Last Filed: 07/14/21 08:14> Objective Data Active Medications Piperacillin Sod/Tazobactam (Sod 3.375 gm/ Sodium Chloride) 50 mls @ 100 mls/hr IV Q6H [facility] Last Infusion: 07/14/21 05:43 Dose: 0 mls/hr Documented by: ROSEMARY Acetaminophen (Ofirmev) 1,000 mg in 100 mls @ 400 mls/hr IV Q6H [facility] Last Infusion: 07/14/21 06:26 Dose: 0 mls/hr Documented by: ROSEMARY Morphine Sulfate (Morphine Sulfate 4 Mg/Ml Cartridge) 3 mg IVPUSH Q3H PRN; Protocol PRN Reason: Pain, Severe (Pain Scale 7-10) Ondansetron HCl (Ondansetron Hcl 4 Mg/2 Ml Vial) 4 mg IVPUSH Q8H PRN PRN Reason: Nausea Last Admin: 07/14/21 04:48 Dose: 4 mg Documented by: ROSEMARY Oxycodone HCl (Oxycodone Hcl Immed Release 5 Mg Tablet) 10 mg PO Q4H PRN PRN Reason: Pain, Moderate (Pain Scale 4-6 Oxycodone HCl (Oxycodone Hcl Immed Release 5 Mg Tablet) 5 mg PO Q4H PRN PRN Reason: Pain, Moderate (Pain Scale 4-6 Last Admin: 07/13/21 16:33 Dose: 5 mg Documented by: PRAVIN Sodium Chloride (0.9 % Sodium Chloride Flush 3 Ml Syringe) [facility] Last Admin: 07/14/21 07:14 Dose: Not Given Documented by: SWAPNA Non-Admin Reason: IV Running <ROSANNA Huber Last Filed: 07/14/21 08:14> Labs CBC & Chem 7: : 07/13/21 05:22 07/13/21 05:22 <ROSANNA Huber Last Filed: 07/14/21 08:14> Microbiology Microbiology Results: Microbiology 07/12/21 05:26 Blood Culture - Preliminary Blood - Venous No growth after 48 hours. 07/12/21 05:02 Blood Culture - Preliminary Blood - Venous No growth after 48 hours. <Gayatri Hogue PA-C - Last Filed: 07/14/21 08:14> Procedures Date of Service Date of Service: 07/14/21 <Gayatri Hogue PA-C - Last Filed: 07/14/21 08:14> Progress Note: A&P Assessment and plan (1) Perforated Meckel's diverticulum: Status: Acute <Gayatri Hogue PA-C - Last Filed: 07/14/21 08:14> Assessment and Plan: Feels well Passing flatus Had BM Tolerating liquids Abdomen soft Incision clean and dry Advance diet Ambulate Pain management Seen and examined - agree with JENNY Hogue <Shmuel Gaston MD - Last Filed: 07/14/21 08:59> (2) S/P exploratory laparotomy: Status: Acute <Gayatri Hogue PA-C - Last Filed: 07/14/21 08:14> Assessment and Plan: ?? 36 year old female admitted with perforated meckels diverticulum now POD #2 s/p ex lap, small bowel resection. She continues to do well post op and with good GI function. VSS. Abd exam benign with appropriate post op tenderness, clean incision. Will advance to a solid diet. Encouraged OOB/ambulation, IS use. patient comfortable with plan. Cont IV abx, transition to PO upon discharge. Possible discharge to home later today or tomorrow if tolerating diet. <Gayatri Hogue PA-C - Last Filed: 07/14/21 08:14> Fall Risk Details Current Medications: Current Medications Piperacillin Sod/Tazobactam (Sod 3.375 gm/ Sodium Chloride) 50 mls @ 100 mls/hr IV Q6H [facility] Last Infusion: 07/14/21 05:43 Dose: Infused Documented by: Acetaminophen (Ofirmev) 1,000 mg in 100 mls @ 400 mls/hr IV Q6H [facility] Last Infusion: 07/14/21 06:26 Dose: Infused Documented by: Morphine Sulfate (Morphine Sulfate 4 Mg/Ml Cartridge) 3 mg IVPUSH Q3H PRN; Protocol PRN Reason: Pain, Severe (Pain Scale 7-10) Ondansetron HCl (Ondansetron Hcl 4 Mg/2 Ml Vial) 4 mg IVPUSH Q8H PRN PRN Reason: Nausea Last Admin: 07/14/21 04:48 Dose: 4 mg Documented by: Oxycodone HCl (Oxycodone Hcl Immed Release 5 Mg Tablet) 10 mg PO Q4H PRN PRN Reason: Pain, Moderate (Pain Scale 4-6 Oxycodone HCl (Oxycodone Hcl Immed Release 5 Mg Tablet) 5 mg PO Q4H PRN PRN Reason: Pain, Moderate (Pain Scale 4-6 Last Admin: 07/13/21 16:33 Dose: 5 mg Documented by: Sodium Chloride (0.9 % Sodium Chloride Flush 3 Ml Syringe) 3 ml IVFLUSH [facility] Last Admin: 07/14/21 07:14 Dose: Not Given Documented by: <Gayatri Hogue PA-C - Last Filed: 07/14/21 08:14> Time Spent With Patient Time: Total time spent is greater than 50% in coordination of care (as documented) at patient's floor/unit and/or counseling patient: <Gayatri Hogue PA-C - Last Filed: 07/14/21 08:14> Time with patient: 15 - 24 minutes <Gayatri Hogue PA-C - Last Filed: 07/14/21 08:14> Quality Stroke Does the patient have a stroke diagnosis?: No <ROSANNA Huber Last Filed: 07/14/21 08:14> VTE Prior VTE?: No <ROSANNA Huber Last Filed: 07/14/21 08:14> VTE Risk Level:: Surgical - low <ROSANNA Huber Last Filed: 07/14/21 08:14> VTE Device Contraindication: N/A - Device Ordered <ROSANNA Huber Last Filed: 07/14/21 08:14> VTE Drug Contraindication: N/A - Med Ordered <ROSANNA Huber Last Filed: 07/14/21 08:14>
--- NOTE | 2021-07-14 09:37 | MHC.CM.PN ---
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 PLAN IS TO ADVANCE DIET SLOWLY, CONTINUED OUT OF BED AND AMBUALTION IN THE HALLS CONT IV ABX, TRansition to oral medications at discharge discharge plan if tolerating solid foods well , possible discharge later tonight or tomorrow, home no services pcp patient to call for post hospitla dischagre follow up surgical follow up per duischarge instructions transportation family <
[2021-07-14 12:00] VITALS: BP 114/55; PULSE 75; RESP 18; TEMP 36; O2SAT 97
--- NOTE | 2021-07-14 14:21 | PM.EVENT ---
Event Note Date of Service: 07/14/21 Event Note: Patient continues to do well Tolerating regular diet Has flatus and BMs Denies severe abdominal pain Says she feels well and wants to go home Stable vital signs Okay to DC home Follow-up in the office Discharge instructions given
--- NOTE | 2021-07-20 13:41 | P.DS_ITS ---
DS: Providers Provider Date of Service: 07/14/21 Date of admission: 07/12/21 07:27 Primary care physician: Mireille Ramires MD Attending physician on admission: Shmuel Gaston DS: Diagnosis Discharge Diagnosis (1) Perforated Meckel's diverticulum: Status: Acute (2) S/P exploratory laparotomy: Status: Acute DS: Summary Hospital Course Hospital Course: BRIEF HPI: Marin Sims is a 36 year old healthy female who came to the emergency room with complaints of lower abdominal pain.? She had some low intensity pain for about a week now.? However yesterday morning, it seemed to have worsened.? She said this was mostly in the epigastric area but migrated to the right lower quadrant and lower abdomen last night.? This became severe so she came to the emergency room at about 01:00 o'clock in the morning.? She denies any nausea or vomiting.? She denies any diarrhea. She is S/P C section from last March 2021 and is nursing a 3-month old baby at home. Workup in the emergency department included a CT scan of the abdomen pelvis which demonstrated perforated Meckel's diverticulum with free air. She had significant abdominal tenderness upon examination. HOSPITAL COURSE: It was therefore recommended to proceed with exploratory laparotomy with resection of the Meckel's diverticulum and small bowel. She agreed proceed. She was started on IVF and IV Zosyn. On 07/12/2021, exploratory laparotomy with small-bowel resection was performed by Dr. Shmuel Gaston without complication. The patient tolerated procedure well, completed routine recovery in PACU and was admitted to the [facility] surgical floor for observation. She had an uncomplicated pre course. She was started on a clear liquid diet postoperatively. On POD# 1, she was tolerating the clear liquid diet. She denied passing flatus or bowel movements. Her pain was well controlled. She was ambulated. On POD # 2, She continued to feel well with good pain control. She began to pass flatus and move her bowels and continued to tolerate her diet. She felt hungry and was therefore advanced to a low residue diet. Her abdominal exam remained benign with a clean incision. She was reassessed later than day and remained comfortable with good postop pain control on p.o. analgesics and was tolerating a solid diet with good GI function. She felt ready for discharge and was discharged to home on 07/14/2021 in stable condition on a p.o. course of Augmentin. She is to follow-up in the office with Dr. Gaston. Status at Discharge Functional status at discharge: independent ambulation Overall status at discharge: patient is progressing back to baseline Time Spent with Patient Time attestation: Total time spent providing and/or coordinating discharge services: Discharge coordination time: Less than 30 minutes Quality: Stroke Does the patient have a stroke diagnosis?: No Physical Exam Vital Signs: Vital Signs: Last Vital Signs Temp 96.8 F 07/14/21 12:00 Pulse 75 07/14/21 12:00 Resp 18 07/14/21 12:00 BP 114/55 L 07/14/21 12:00 Pulse Ox 97 07/14/21 12:00 BMI result Body Mass Index 36.4 Const: General: comfortable, no acute distress and alert Orientation/consciousness: patient oriented x3 Resp: Effort & Inspection: normal respiratory effort GI: Inspection: No distended and Yes incision (CLEAN) Palpation (GI): Soft to palpation, Tenderness to palpation present (GI) (very mild incisional), no guarding and not rigid Skin: General skin exam: no rashes or lesions noted Neuro: General: patient oriented x3 DS: Data Data Completed and Pending Completed studies during hospitalization [Text1]: 07/12/21 11:57 Surgical [PTH] Routine Small bowel, Meckel's diverticulum, excision: Perforated Meckel's diverticulum with extensive ectopic gastric mucosa, abscess formation, patchy necrosis and serosal fibropurulent material; no malignancy identified. Procedures Excision of Small Intestine, Open Approach (07/12/21) Discharge Plan Discharge Patient Disposition: Home, Self-Care Discharge Diagnosis: perforated meckel's diverticulum Referrals: Mireille Ramires MD [Primary Care Provider] - 1 Week Discharge Medications: New amoxicillin-pot clavulanate [Augmentin] 500-125 mg tablet 1 tab PO BID Qty: 10 RF: 0 oxycodone-acetaminophen [Percocet] 5-325 mg tablet 1 tab PO Q4-6H PRN (Reason: pain, severe) Qty: 30 RF: 0 Discharge Orders: Discharge Order (Routine); Ordered 07/14/21 Ordered By: Shmuel Gaston Diet: advance to usual diet Activity on Discharge: No heavy lifting Stand Alone Forms: Patient Portal Discharge page Activity Restrictions/Additional Instructions: If the incision area is tender, you may apply an ice pack for short intervals (No more than 20 minutes on, followed by at least 20 minutes off). Do not apply heat. Do not use creams, lotions, or topical antibiotics unless instructed to do so by your surgeon. These can cause infection or allergic reaction. Ok to shower. You have chela closing your incision and these will be removed approximately 10-14 days after surgery. NO HEAVY LIFTING (>20lbs). Follow up in office. ([phone]) Call Your Doctor If: -Your temperature exceeds 101.5? F -You experience excessive pain or swelling -You have an unexpected reaction to medication -You have excessive bleeding -You experience continued vomiting/nausea -Your incision begins to separate -Your incision shows signs of infection such as increased redness, swelling, excessive pain, drainage (light blood or clear fluid is normal) or heat Care Plan Goals: Return to baseline health and gradual return to activity following recovery period. Health Concerns: perforated meckel's diverticulum Plan of Treatment: s/p ex lap Assessment: Doing well post op Discharge Date/Time: 07/14/21 15:20
== END 2021-07-14 15:20 | disposition home or self-care (01) | DRG 230 ==
LOC: HO.ED 06:23 → HO.EDOVER 07:32 → HO.S3 15:40
PROVIDERS: Physician Assistant Surgical; Admitting Provider Surgery; Emergency Provider Student in an Organized Health Care Education/Training Program; PCP Internal Medicine; Visit Provider Surgery
PROC: 0DB80ZZ Excision of Small Intestine, Open Approach (ICD-10-PCS; CPT 49000; principal; 2021-07-12 12:30)
DX: Q43.0 Meckel's diverticulum (displaced) (hypertrophic) (principal); K65.8 Other peritonitis; Z20.822 Contact with and (suspected) exposure to COVID-19
CPT/HCPCS: 36415; 74177; 80048; 80053; 81003; 81025; 83605; 83690; 85025; 87040; 87635; 88307; 99283; C1758; J0131; J0690; J1100; J1170; J1885; J2250; J2405; J2543; J2550; J3010; Q9967

== ENCOUNTER → 2021-07-12 07:27 | Outpatient (BNV) | payer OTHER, SELFPAY | PROVIDERS: Admitting Provider Surgery; Emergency Provider Student in an Organized Health Care Education/Training Program; PCP Internal Medicine; Visit Provider Surgery | DX: Q43.0 Meckel's diverticulum (displaced) (hypertrophic) (principal) ==

== ENCOUNTER → 2021-07-27 15:13 | Outpatient (BNVA) | payer OTHER, SELFPAY | PROVIDERS: PCP Internal Medicine; Visit Provider Surgery ==

== ENCOUNTER → 2021-09-05 12:44 | Outpatient (BNVA) | payer OTHER, SELFPAY | PROVIDERS: PCP Internal Medicine; Referring Provider Internal Medicine; Visit Provider Surgery ==

== ENCOUNTER → 2021-12-08 11:12 | Outpatient (BNVA) | payer OTHER, SELFPAY | PROVIDERS: PCP Internal Medicine; Referring Provider Internal Medicine; Visit Provider Surgery | DX: Z13.89 Encounter for screening for other disorder (principal) ==

== ENCOUNTER 2021-12-15 16:22 | Outpatient (REF) | payer OTHER, SELFPAY ==
--- NOTE | ~2021-12-15 | CT_ITS ---
EXAMINATION: CT ABDOMEN AND PELVIS WITHOUT CONTRAST CLINICAL INFORMATION: Postprocedural complication of skin COMPARISON: Previous CT of the abdomen and pelvis June 2021 TECHNIQUE: Multidetector volumetric imaging was performed from the superior aspect of the liver through the pubic symphysis. Sagittal and coronal reformatted images were obtained on the technologist's workstation. This CT examination was performed using dose optimization techniques as appropriate, variously including the following: *Automated exposure control *Adjustment of mA and/or kV according to patient size (this includes techniques or standardized protocols for targeted exams where dose is matched to indication/reason for exam; i.e. extremities or head) *Use of iterative reconstruction technique DLP: 640 mGy-cm FINDINGS: LUNG BASES: The visualized lung bases are unremarkable. LIVER, GALLBLADDER, AND BILIARY TREE: The liver is normal in size, shape, and attenuation. No focal hepatic lesion or biliary ductal dilatation is present. The gallbladder is unremarkable with no evidence of radiopaque gallstones, gallbladder wall thickening, or obvious pericholecystic inflammatory changes. PANCREAS: Unremarkable. SPLEEN: Unremarkable. ADRENAL GLANDS: Unremarkable. KIDNEYS AND URETERS: The kidneys are normal in size, shape, and attenuation. There is a tiny 1 mm stone in the mid to lower pole of the right kidney. Kidneys are otherwise normal. BLADDER: Unremarkable. GASTROINTESTINAL TRACT: There is diverticulosis of the colon. There are postsurgical changes to the small bowel. The small and large bowel are otherwise unremarkable. The appendix is unremarkable. ABDOMINAL WALL: There are postsurgical changes to the lower abdominal wall and bulge. There is a small umbilical hernia containing fat. LYMPH NODES: Normal. VASCULAR: Unremarkable. PELVIC VISCERA: Unremarkable. OSSEOUS STRUCTURES: Unremarkable. CT/CT abdomen pelvis wo con IMPRESSION: Postsurgical changes to the lower abdominal wall and mild abdominal wall bulge. Small umbilical hernia containing fat. Diverticulosis of the colon. No evidence of diverticulitis. Postsurgical changes to the small bowel. Finding 1 on nonobstructing right renal stone. Fleischner guidelines were followed.
== END 2021-12-15 16:23 | disposition home or self-care (01) ==
LOC: HO.CT 16:22
PROVIDERS: PCP Internal Medicine; Visit Provider Surgery
DX: L76.82 Other postprocedural complications of skin and subcutaneous tissue (principal)
CPT/HCPCS: 74176

== ENCOUNTER → 2021-12-22 10:55 | Outpatient (BNVA) | payer OTHER, SELFPAY | PROVIDERS: PCP Internal Medicine; Referring Provider Internal Medicine; Visit Provider Surgery | DX: L76.82 Other postprocedural complications of skin and subcutaneous tissue (principal) ==

== ENCOUNTER → 2022-12-04 15:44 | Outpatient (BNVA) | payer OTHER, SELFPAY | PROVIDERS: PCP Student in an Organized Health Care Education/Training Program; Visit Provider Surgery | DX: Z13.89 Encounter for screening for other disorder (principal) ==

== ENCOUNTER 2022-12-13 08:39 | Outpatient (REF) | payer OTHER, SELFPAY ==
--- NOTE | ~2022-12-13 | CT_ITS ---
EXAMINATION: CT ABDOMEN AND PELVIS WITHOUT CONTRAST CLINICAL INFORMATION: Postprocedural complication of skin and subcutaneous tissue. COMPARISON: None available. TECHNIQUE: Multidetector volumetric imaging was performed from the superior aspect of the liver through the pubic symphysis. Sagittal and coronal reformatted images were obtained on the technologist's workstation. This CT examination was performed using dose optimization techniques as appropriate, variously including the following: *Automated exposure control *Adjustment of mA and/or kV according to patient size (this includes techniques or standardized protocols for targeted exams where dose is matched to indication/reason for exam; i.e. extremities or head) *Use of iterative reconstruction technique DLP: 656 mGy-cm FINDINGS: LUNG BASES: The lung bases are unremarkable. LIVER, GALLBLADDER, AND BILIARY TREE: The liver is normal in size, shape, and attenuation. No focal hepatic lesion or biliary ductal dilatation is present. The gallbladder is unremarkable with no evidence of radiopaque gallstones, gallbladder wall thickening, or obvious pericholecystic inflammatory changes. PANCREAS: Unremarkable. SPLEEN: Unremarkable. ADRENAL GLANDS: Unremarkable. KIDNEYS AND URETERS: The kidneys are normal in size, shape, and attenuation. No hydronephrosis, hydroureter, or calculi seen. No perinephric stranding. BLADDER: Unremarkable. GASTROINTESTINAL TRACT: There is scattered stool, diverticuli and gas seen throughout the colon without any significant distention or diverticulitis. There are postsurgical changes involving a loop of small bowel in the upper pelvis. Otherwise small bowel loops are unremarkable and nondilated. Appendix is normal caliber. No free air or free fluid. ABDOMINAL WALL: No significant hernia is appreciated. LYMPH NODES: Normal. VASCULAR: Unremarkable. PELVIC VISCERA: The uterus is anteverted and unremarkable. There is no adnexal mass or free fluid. OSSEOUS STRUCTURES: No aggressive lytic or sclerotic process seen. There is mild loss of L5-S1 disc height. CT/CT abdomen pelvis wo IV con IMPRESSION: 1. No acute intra-abdominal process seen. 2. Scattered colonic diverticulosis without diverticulitis. Postsurgical changes involving a loop of small bowel in the upper pelvis. Fleischner guidelines were followed.
== END 2022-12-13 08:40 | disposition home or self-care (01) ==
LOC: HO.CT 08:39
PROVIDERS: Visit Provider Surgery
DX: L76.82 Other postprocedural complications of skin and subcutaneous tissue (principal)
CPT/HCPCS: 74176

== ENCOUNTER → 2022-12-25 11:35 | Outpatient (BNVA) | payer OTHER, SELFPAY | PROVIDERS: PCP Student in an Organized Health Care Education/Training Program; Visit Provider Surgery ==

== ENCOUNTER 2023-01-13 15:47 | Emergency (ER) | payer OTHER, SELFPAY ==
[2023-01-13 15:50] VITALS: BP 135/72; PULSE 97; RESP 18; TEMP 36.4; O2SAT 99; BMI 40.7
[2023-01-13 16:00] VITALS: BP 131/52; PULSE 88; RESP 16; TEMP 36.9; O2SAT 100
[2023-01-13 16:08] LABS: MANUAL DIFF FLAG NO
[2023-01-13 16:09] LABS: Basophils Absolute Auto 0.1 X10*3/uL (0.0-0.2); Basophils Percent Auto 0.4 % (0-2); Eosinophils Absolute Auto 0.2 X10*3/uL (0.0-0.4); Eosinophils Percent Auto 1.7 % (0-4); Hematocrit 39.5 % (37.0-47.0); Hemoglobin 12.9 g/dl (12.0-16.0); Imm Gran Abs Auto 0.03 X10*3/uL (0.00-0.03); Imm Gran Pct Auto 0.2 % (0.0-0.4); Lymphocytes Absolute Auto 1.5 X10*3/uL (1.2-4.9); Lymphocytes Percent Auto 12.5 % (20-40); Mean Corpuscular HGB Conc 32.7 g/dl (31.0-35.0); Mean Corpuscular Hemoglobin 30.4 pg (27.0-33.0); Mean Corpuscular Volume 92.9 fL (80.0-98.0); Mean Platelet Volume 9.8 fL (9.4-12.3); Monocytes Percent Auto 7.8 % (2-11); Neutrophils Absolute Auto 9.4 x10*3/uL (2.0-8.3); Neutrophils Percent Auto 77.4 % (45-73); Platelet Count 312 X10*3/uL (160-400); Red Blood Count 4.25 X10*6/uL (4.20-5.50); Red Cell Distribution Width 12.1 % (11.0-16.0); White Blood Count 12.1 X10*3/uL (4.8-10.8)
--- NOTE | 2023-01-13 16:11 | ED.GENADULT ---
HPI - General Adult General Chief complaint: Abdominal Pain Stated complaint: abdominal pain Time Seen by Provider: 01/13/23 17:14 Source: patient, RN notes reviewed and old records reviewed Mode of arrival: ambulatory Limitations: no limitations History of Present Illness HPI narrative: 37-year-old female past medical history significant for Meckel's diverticulum, diverticulitis presents for evaluation of left lower abdominal pain. Patient reports the pain started about 5 days ago. She reports associated soft stools but denies diarrhea or bloody stool Denies any fevers, chills Currently her pain is a 6/10. Denies any urinary complaints Related Data Previous Rx's Medication Instructions Recorded amoxicillin 500 mg-potassium 1 tab PO BID #10 tabs 07/14/21 clavulanate 125 mg tablet (Augmentin) oxycodone-acetaminophen 5 mg-325 1 tab PO Q4-6H PRN pain, severe 07/14/21 mg tablet (Percocet) #30 tabs amoxicillin 875 mg-potassium 1 tab PO Q12H #20 tabs 01/13/23 clavulanate 125 mg tablet Allergies Allergy/AdvReac Type Severity Reaction Status Date / Time acetaminophen [From Vicodin] Allergy Intermediate Itching Verified 01/13/23 15:50 Review of Systems Constitutional: Constitutional: Reports as per HPI, Denies chills, Denies fatigue, Denies fever(s) and Denies headache(s) ENT: Denies headache(s) Cardiovascular: Cardiovascular: Denies chest pain and Denies dyspnea Respiratory: Respiratory: Denies cough and Denies dyspnea Gastrointestinal: Gastrointestinal: Reports abdominal pain, Denies constipation, Denies diarrhea, Reports loose stools, Reports nausea and Denies vomiting Genitourinary: Genitourinary: Denies dysuria Neurologic: Denies headache(s) and Denies focal weakness Endocrine: Endocrine: Denies fatigue PMFSH Past Medical History Medical History Diverticulitis Gestational diabetes Incisional pain Morbid obesity Surgical History History of exploratory laparotomy (~07/12/21) History of surgical removal of ganglion cyst Hx of section Hx of colonoscopy with polypectomy Social History Social History (Reviewed 12/25/22 @ 11:41 by LANDRY Ellington Household Members: Family Housing: House Do you presently have visiting nurse or other home services: No Patient Tobacco Use Status: Never used Tobacco Advance Directives: No Advance Directives Information Provided: No service: No Current occupational status: employed Physical Exam ED Vital Signs: Vital Signs - 24 hr 01/13/23 15:50 01/13/23 16:00 Temperature 97.6 F 98.4 F Pulse Rate 97 88 Respiratory Rate 18 16 Blood Pressure 135/72 131/52 L Pulse Oximetry 99 100 Oxygen Delivery Method Room Air Room Air BMI result Body Mass Index 40.7 Const General: healthy appearing, comfortable, no acute distress, alert and awake Nutritional Appearance: well nourished Orientation/consciousness: patient oriented x3 Eyes Eyelids: Yes eyelids normal Conjunctivae: conjunctivae normal Sclerae: sclerae normal Corneas: corneas normal Pupils: Equal, round and reactive pupils present EOM: EOMs intact bilaterally Neck Neck: Yes full ROM Resp Effort & Inspection: normal respiratory effort, able to speak in complete sentences and not labored GI Inspection: No distended Palpation (GI): Soft to palpation, not firm, Tenderness to palpation present (GI) in the LLQ and suprapubicly, Guarding due to palpation present (GI) in the LLQ and not rigid Auscultation: normoactive bowel sounds Skin General skin exam: no rashes or lesions noted and elasticity normal Neuro General: patient oriented x3 Cranial nerves: Yes Equal, round and reactive pupils present and Yes Bilaterally intact EOM present Cognition (Neuro): normal cognition Extrem Other: Moving all extremities well without any obvious deformities Course Course Course Narrative: RME performed by Roxie Bhardwaj PA-C. Patient is a 37 year old assigned female at presenting to the emergency department with abdominal pain. Patient has a hx of diverticulitis. Labs ordered. Patient placed back in the waiting room pending room availability and results. Medical Decision Making Medical Decision Making MDM Narrative: 37-year-old female presents for evaluation of left lower abdominal pain, loose stools. She with history of diverticulitis and this reminds her of similar episodes in the past. She denies any bloody stool, [place]vers[place] [address]. No other significant lab abnormalities. I discussed with the patient the options of doing a CT scan of the abdomen pelvis or treating for clinical suspicion of diverticulitis. The patient reports having had a CT scan a few weeks ago prior to and her symptoms for unrelated reasons. She has had about 3 [address] scans this year. After discussion the patient opted to be treated empirically with Augmentin. She was given strict return precautions. There is no evidence of sepsis, I have low suspicion for perforation Differential Diagnosis Diverticulitis Perforated diverticulitis Colitis next abdominal pain UTI Obstructive uropathy Lab Data MDM Lab Attestation statement: I reviewed the patient's lab results. 01/13/23 16:05 01/13/23 16:05 Labs: Lab Results 01/13/23 01/13/23 Range/Units 16:05 16:05 WBC 12.1 H (4.8-10.8) X10*3/uL RBC 4.25 (4.20-5.50) X10*6/uL Hgb 12.9 (12.0-16.0) g/dl Hct 39.5 (37.0-47.0) % MCV 92.9 (80.0-98.0) fL MCH 30.4 (27.0-33.0) pg MCHC 32.7 (31.0-35.0) g/dl RDW 12.1 (11.0-16.0) % Plt Count 312 (160-400) X10*3/uL MPV 9.8 (9.4-12.3) fL Immature Gran % (Auto) 0.2 (0.0-0.4) % Neut % (Auto) 77.4 H (45-73) % Lymph % (Auto) 12.5 L (20-40) % [place] % (Auto) 7.8 (2-11) % Eos % (Auto) 1.7 (0-4) % Baso % (Auto) 0.4 (0-2) % Lymph # (Auto) 1.5 (1.2-4.9) X10*3/uL [place] # (Auto) 1.0 (0.1-1.2) X10*3/uL Eos # (Auto) 0.2 (0.0-0.4) X10*3/uL Baso # (Auto) 0.1 (0.0-0.2) X10*3/uL Abs Immat Gran (auto) 0.03 (0.00-0.03) X10*3/uL Absolute Neuts (auto) 9.4 H (2.0-8.3) x10*3/uL Absolute Nucleated RBC 0.000 (0.0-0.012) X10*3/uL Nucleated RBC % (auto) 0.0 (0.0-0.2) /100WBC Sodium 141 (135-145) mmol/L Potassium 4.1 (3.3-5.1) mmol/L Chloride 109 H (96-108) mmol/L Carbon Dioxide 24 (22-29) mmol/L Anion Gap 12 (12-20) BUN 10 (9-16) mg/dL Creatinine 0.95 (0.5-1.4) mg/dL Estim Creat Clear Calc 85.0 Estimated GFR > 60 Random Glucose 111 (60-115) mg/dL Calcium 8.9 (8.4-10.2) mg/dL Total Bilirubin 0.3 (0.0-1.0) mg/dL AST 14 (5-31) U/L ALT 19 (0-31) U/L Alkaline Phosphatase 60 (39-117) U/L Total Protein 6.8 (6.5-8.0) g/dL Albumin 4.0 (3.5-5.0) g/dL Lipase 23 (8-78) U/L Beta HCG, Quant < 2 mIU/mL Discharge Plan Discharge Clinical Impression: Diverticulitis Patient Disposition: Home, Self-Care Instructions: Diverticulitis (ED) Additional Instructions: Your symptoms are most consistent with diverticulitis. Take Augmentin twice daily for 10 days You should have a clear liquid diet and advance as tolerated as your symptoms improved Return to the ER if your symptoms are worsening, if you have severe pain or develops fevers Prescriptions: New amoxicillin-pot clavulanate 875-125 mg tablet 1 tab PO Q12H Qty: 20 0RF No Action amoxicillin-pot clavulanate [Augmentin] 500-125 mg tablet 1 tab PO BID Qty: 10 0RF oxycodone-acetaminophen [Percocet] 5-325 mg tablet 1 tab PO Q4-6H PRN (Reason: pain, severe) Qty: 30 0RF
[2023-01-13 16:34] LABS: Alanine Aminotransferase 19 U/L (0-31); Alkaline Phosphatase 60 U/L (39-117); Anion Gap 12 (12-20); Aspartate Amino Transferase 14 U/L (5-31); Bilirubin Total 0.3 mg/dL (0.0-1.0); Blood Urea Nitrogen 10 mg/dL (9-16); Calcium 8.9 mg/dL (8.4-10.2); Carbon Dioxide 24 mmol/L (22-29); Chloride 109 mmol/L (96-108); Estimated Glomerular Filt Rate > 60; Glucose Random 111 mg/dL (60-115); Lipase 23 U/L (8-78); Potassium 4.1 mmol/L (3.3-5.1); Sodium 141 mmol/L (135-145); Total Protein 6.8 g/dL (6.5-8.0)
[2023-01-13 16:37] LABS: HCG Quantitative < 2 mIU/mL
[2023-01-13 17:40] LABS: Appearance Urine Clear; Color Urine Yellow; Glucose Urine UA Negative (Negative); Leukocyte Esterase Urine Negative (Negative); Nitrite Urine Negative (Negative); Specific Gravity - Urine 1.025 (1.005-1.025); Urine Blood Negative (Negative); Urine Ketones Trace mg/dL (Negative); Urine Protein Negative (Neg-Trace)
== END 2023-01-13 18:10 | disposition home or self-care (01) ==
PROVIDERS: Physician Assistant Medical; Emergency Provider Emergency Medicine; PCP Student in an Organized Health Care Education/Training Program
DX: K57.32 Diverticulitis of large intestine without perforation or abscess without bleeding (principal); Z79.899 Other long term (current) drug therapy
CPT/HCPCS: 36415; 80053; 81003; 83690; 84702; 85025; 99283